=== PATIENT | female | born 1970 | race Caucasian/White ===

== ENCOUNTER 2024-06-03 16:11 | Emergency (ER) | payer BC ==
[~2024-06-03] VITALS: Ht 172.7 cm; Wt 95.3 kg
[2024-06-03 16:32] VITALS: BP 160/105; PULSE 92; RESP 20; TEMP 98; O2SAT 98
[2024-06-03 16:44] LABS: BASOPHIL # 0.1 10^3/uL (0.0-0.1); BASOPHIL % 0.8 % (0.1-1.2); EOSINOPHIL # 0.2 10^3/uL (0.0-0.2); EOSINOPHIL % 2.9 % (0.0-5.0); HEMATOCRIT(ML) 47.6 % (36.0-46.0); HEMOGLOBIN 15.6 g/dL (12.0-15.0); LYMPHOCYTES # 1.87 10^3/uL1 (1.0-4.8); MEAN CORP HGB 29.2 pg (26-34); MEAN CORP HGB CONCENTRATION 32.8 g/dL (33-36.5); MEAN CORP VOLUME 89.1 fL (78-100); MONOCYTES # 0.4 10^3/uL (0.3-0.8); MONOCYTES % 5.3 % (5.0-12.0); NEUTROPHIL # 4.7 10^3/uL (1.8-7.7); NEUTROPHILS % 64.7 % (41.0-85.0); PLATELET COUNT 277 10^3/uL (150-400); RED BLOOD CELL 5.34 10^6/uL (4.00-5.20); RED CELL DISTRIBUTION WIDTH 13.1 % (11.5-14.5); WHITE BLOOD CELL 7.2 10^3/uL (4.5-11.0)
[2024-06-03 16:47] LABS: +ADD MANUAL DIFF(NO CHRG) NO
[2024-06-03] MEDS ORDERED: ASPIRIN ONE (16:49)
[2024-06-03] MEDS: ASPIRIN PO STA (16:52)
[2024-06-03 17:03] LABS: ALANINE AMINOTRANSFERASE(ML) 35 U/L (12-78); ALBUMIN(ML) 4.2 g/dL (3.4-5.0); ALBUMIN/GLOBULIN RATIO 1.272; ALKALINE PHOSPHATASE 111 U/L (50-136); ANION GAP 14.6; ASPARTATE AMINO TRANSFERASE 25 U/L (0-35); CALCIUM 9.9 mg/dL (8.4-10.5); CARBON DIOXIDE 26.2 mmol/L (20.0-32); CREATININE SERUM 0.95 mg/dL (0.59-1.40); EST GFR, NON-AA 61.1 (>/=60); GLUCOSE 122 mg/dL (74-106); POTASSIUM 3.8 mmol/L (3.6-5.2); SODIUM 141 mmol/L (132-145); TROPONIN I HIGH SENSITIVITY < 4 ng/L (0-50)
[2024-06-03] MEDS ORDERED: GABA100C7 PO (18:50)
[2024-06-03] MEDS ORDERED: NEURONTIN ONE ×2 (18:53)
[2024-06-03 18:55] VITALS: BP 147/91; PULSE 87; RESP 18; O2SAT 99
[2024-06-03] MEDS: NEURONTIN PO STA (18:56)
== END 2024-06-03 18:58 | disposition home or self-care (01) ==
LOC: ER 16:11
DX: R07.9 Chest pain, unspecified (principal); I10 Essential (primary) hypertension
CPT/HCPCS: 99284; 71045; 80053; 85025; 36415; 85379; 84484 ×2; 83690; 93005; J8499